=== PATIENT | female | born 1950 | race Caucasian/White ===

== ENCOUNTER → 2017-10-21 | Outpatient (CLI) | payer MEDICARE ==
--- NOTE | 2017-10-21 08:56 | RADIOLOGY IMAGING REPORT ---
FACILITY: [facility] - [place] PATIENT NAME: Gila Stephens : 1950 MR: [id number] V: [id number] EXAM DATE: ORDERING PHYSICIAN: MIRANDA WHITE TECHNOLOGIST: Location: [facility] [place] Patient: Gila Stephens : 1950 Visit/Account:[id number] Date of Sevice: 10/21/2017 BONE MINERAL DENSITY HISTORY: Osteopenia COMPARISON: None FINDINGS: LUMBAR SPINE: Bone mineral density (BMD) measured from L1-L4 correlates with a Z-score of 2.1 and a T-score of 1.6 which is normal as defined by the World Health Organization. The corresponding risk of fracture in t he lumbar spine is not increased compared with a young adult reference population. HIP: Bone mineral density (BMD) measured in the left hip or femoral neck region correlates with a Z-score of 1.1 and a T-score of 0.2 which is normal as defined by the World Health Organization. The corres ponding risk of fracture in the hip is not increased compared with a young adult reference population . Bone mineral density (BMD) measured in the left Femoral Neck region measures 1.064 g/cm2. IMPRESSION: 1. Lumbar spine: Normal. 2. Left Hip: Normal. 3. Left Femoral Neck: Bone Mineral Density is 1.064 g/cm2. FRAX? WHO Fracture Risk Assessment Tool link: <http://www.shef.ac.uk/FRAX/tool.jsp?[email or web address]> PLEASE NOTE: 1) The World Health Organization defines low BMD as follows: T-score Normal > -1 Osteopenia < -1 and > -2.5 Osteoporosis < -2.5 without fractures Established osteoporosis < -2.5 with fractures 2) In general, you may wish to consider: Diagnosis Treatment Follow-up DEXA Normal BMD Prevention 2-3 years Osteopenia Prevention/therapy 1-2 years Osteoporosis Therapy Yearly 3) Fracture risk estimated from the T-score is more accurate for vertebral fractures (often spontane ous) than for hip fractures. Report Dictated By: Reymundo De La Fuente at 10/21/2017 8:45 AM Report E-Signed By: Reymundo De La Fuente at 10/21/2017 8:50 AM WSN:[email or web address]
--- NOTE | 2017-10-21 08:59 | EKG ---
FACILITY: [facility] - [place], [place] PATIENT NAME: GIORGIO TREVINO : [id number] MR: [id number] V: [id number] EXAM DATE: ORDERING PHYSICIAN: MIRANDA WHITE TECHNOLOGIST: Santos Silverman Reason : Blood Pressure : / mmHG Vent. Rate : 081 BPM Atrial Rate : 081 BPM P-R Int : 194 ms QRS Dur : 100 ms QT Int : 412 ms P-R-T Axes : 048 075 042 degrees QTc Int : 478 ms Sinus rhythm Possible left atrial enlargement No previous ECGs available Confirmed by MELO CARD ([id number]) on 10/21/2017 7:33:02 PM Referred By: MIRANDA WHITE Confirmed By:MELO CARD
[2017-10-21 10:22] LABS: LDL CHOLESTEROL 75 mg/dl
--- NOTE | 2017-10-21 11:09 | RADIOLOGY IMAGING REPORT ---
FACILITY: [facility] - [place] PATIENT NAME: GIORGIO TREVINO : [id number] MR: [id number] V: [id number] EXAM DATE: ORDERING PHYSICIAN: MIRANDA WHITE TECHNOLOGIST: Connie Jerome PROCEDURE:BILATERAL DIGITAL SCREENING MAMMOGRAM WITH CAD ASSISTED INTERPRETATION & 3D TOMOSYNTHESIS COMPARISON:None. The patient's prior mammograms have been purged. INDICATIONS:screening FINDINGS: A small amount of fibroglandular tissue is seen throughout the breasts. There is a focal area of increased densities on Zone 2 in the upper outer quadrant of the Left breast for which spot compression view is recommended. DIAGNOSTIC CATEGORY 0--INCOMPLETE: NEED ADDITIONAL IMAGING EVALUATION. RECOMMENDATIONS: ADDITIONAL MAMMOGRAPHIC VIEWS REQUIRED: LEFT BREAST. IMPRESSION: BIRADS 0: Incomplete Additional view of the Left breast is recommended as described. Dictated by: Eleni Cardona M.D. on 10/21/2017 at 8:35 Transcribed by: ALLEN on 10/21/2017 at 10:55 Approved by: Eleni Cardona M.D. on 10/21/2017 at 11:08 [facility]
== END ==
LOC: MAMO 02:06
PROVIDERS: ATTEND Nurse Practitioner Family
DX: Z13.820 Encounter for screening for osteoporosis (principal); Z12.31 Encounter for screening mammogram for malignant neoplasm of breast; R92.8 Other abnormal and inconclusive findings on diagnostic imaging of breast; E28.39 Other primary ovarian failure; I10 Essential (primary) hypertension; R53.83 Other fatigue; R06.02 Shortness of breath; Z83.3 Family history of diabetes mellitus; E66.01 Morbid (severe) obesity due to excess calories; Z68.41 Body mass index [BMI] 40.0-44.9, adult
CPT/HCPCS: 36415; 77063; 77067; 77080; 82040; 82247; 82310; 82374; 82435; 82465; 82565; 82947; 83036; 83718; 83880; 84075; 84132; 84155; 84295; 84443; 84450; 84460; 84478; 84520; 93005

== ENCOUNTER → 2017-10-29 | Outpatient (CLI) | payer MEDICARE, OTHER ==
--- NOTE | 2017-10-29 15:52 | RADIOLOGY IMAGING REPORT ---
[facility] PATIENT NAME: GIORGIO TREVINO : [id number] MR: [id number] V: [id number] EXAM DATE: [id number] ORDERING PHYSICIAN: MIRANDA WHITE TECHNOLOGIST: Charline Hassan PROCEDURE:LEFT DIGITAL DIAGNOSTIC MAMMOGRAM WITH CAD ASSISTED INTERPRETATION & 3D TOMOSYNTHESIS COMPARISON:Prior mammograms 10/21/17. INDICATIONS:FURTHER EVAL FINDINGS: The patient returns for a mediolateral view of the Left breast and spot compression view in the Left CC and MLO projections. The small focal area of increased density in the upper outer quadrant of the Left breast appear compressible and apparently represent summation shadow. There is no evidence of malignant appearing mass, or calcifications in the Left breast. DIAGNOSTIC CATEGORY 2--BENIGN FINDING. RECOMMENDATIONS: ROUTINE MAMMOGRAM AND CLINICAL EVALUATION. IMPRESSION: BIRADS 2: Benign finding No significant abnormality of the Left breast is seen Dictated by: Eleni Cardona M.D. on 10/29/2017 at 11:46 Transcribed by: ALLEN on 10/29/2017 at 14:25 Approved by: Eleni Cardona M.D. on 10/29/2017 at 15:51 [facility]
== END ==
LOC: MAMO 06:53
PROVIDERS: ATTEND Nurse Practitioner Family
DX: R92.2 Inconclusive mammogram (principal)
CPT/HCPCS: 77065

== ENCOUNTER 2018-11-12 11:10 | Emergency (ER) | payer MEDICARE, OTHER ==
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
[2018-11-12] MEDS ORDERED: HYDR-2966 PO (11:37)
[2018-11-12] MEDS ORDERED: VENL150C61 PO (11:38)
[2018-11-12] MEDS ORDERED: NS(*) 0.9% 1000 ML BAG 1,000 ML IV ONE (11:40)
[2018-11-12 11:52] LABS: PLATELET COUNT, AUTOMATED 278 K/uL (150-450)
--- NOTE | 2018-11-12 12:00 | EKG ---
FACILITY: [facility] [place] PATIENT NAME: GIORGIO TREVINO : [id number] MR: [id number] V: [id number] EXAM DATE: ORDERING PHYSICIAN: KADEN TO TECHNOLOGIST: JON Silverman Reason : SHORT TERM MEMORY Blood Pressure : / mmHG Vent. Rate : 086 BPM Atrial Rate : 086 BPM P-R Int : 194 ms QRS Dur : 104 ms QT Int : 410 ms P-R-T Axes : 040 055 042 degrees QTc Int : 490 ms Sinus rhythm with occasional premature ventricular complexes and fusion complexes Prolonged QT Abnormal ECG Confirmed by SIENNA SORENSEN ([id number]) on 11/13/2018 6:46:36 AM Referred By: Confirmed By:SIENNA SORENSEN
--- NOTE | 2018-11-12 12:15 | RADIOLOGY IMAGING REPORT ---
FACILITY: [facility] [place] PATIENT NAME: Gila Stephens : 1950 MR: [id number] V: [id number] EXAM DATE: ORDERING PHYSICIAN: KADEN TO TECHNOLOGIST: Location[place] [facility] [place] Patient: Gila Stephens : 1950 Visit/Account:[id number] Date of Sevice: 11/12/2018 EXAMINATION: CT head without IV contrast HISTORY: Short-term memory loss. TECHNIQUE: Axial CT images of the head were obtained from the vertex to the skull base without IV c ontrast, with coronal and sagittal 2D reconstructed images. One of the following dose optimization techniques was utilized in the performance of this exam: Autom ated exposure control; adjustment of the mA and/or kV according to the patient's size; or use of an i terative reconstruction technique. Specific details can be referenced in the facility's radiology C T exam operational policy. COMPARISON: None. FINDINGS: There is mild age-appropriate parenchymal volume loss with slight patchy low attenuation in the deep white matter compatible with chronic small vessel ischemic change. No CT evidence of intracranial hemorrhage, mass lesion, or acute infarct. No midline shift or extra-a xial fluid collections. Pompa-white differentiation is maintained. The calvarium is intact. Moderate mucosal thickening in the right maxillary sinus. The paranasal sinu ses and mastoid air cells are otherwise unopacified. IMPRESSION: 1. No CT evidence of acute intracranial pathology. 2. Mild chronic age-related changes. 3. Inflammatory sinus disease in the right maxillary sinus. Report Dictated By: Reyes Lozano MD at 11/12/2018 12:06 PM Report E-Signed By: Reyes Lozano MD at 11/12/2018 12:10 PM WSN:[id number]
--- NOTE | 2018-11-12 12:31 | RADIOLOGY IMAGING REPORT ---
FACILITY: [facility] - [place] PATIENT NAME: Gila Stephens : 1950 MR: [id number] V: [id number] EXAM DATE: ORDERING PHYSICIAN: KADEN TO TECHNOLOGIST: Location: [facility] Patient: Gila Stephens : 1950 Visit/Account:[id number] Date of Sevice: 11/12/2018 CHEST PA LAT Additional pertinent History: Short-term memory loss COMPARISON STUDIES: None FINDINGS: Support lines and catheters: None Lungs and Pleura: Lung parnell well expanded with no infiltrates or consolidations. No parenchymal ma ss lesions are seen. There are no effusions Heart and vasculature: Negative. Kym and Mediastinum: Negative. Bones and Chest wall: Scoliotic curvature of the thoracic spine maximally convex to the left at the T8 level. Associated osteophytes and disc space narrowing central/lower thoracic spine Upper Abdomen: Negative. IMPRESSION: 1. Negative chest for acute cardiopulmonary disease. Report Dictated By: Aron Real MD at 11/12/2018 12:24 PM Report E-Signed By: Aron Real MD at 11/12/2018 12:26 PM WSN:[id number]
--- NOTE | 2018-11-12 14:13 | RADIOLOGY IMAGING REPORT ---
FACILITY: [facility] PATIENT NAME: Gila Stephens : 1950 MR: [id number] V: [id number] EXAM DATE: ORDERING PHYSICIAN: KADEN TO TECHNOLOGIST: Location: [facility] Patient: Gila Stephens : 1950 Visit/Account:[id number] Date of Sevice: 11/12/2018 EXAMINATION: MRI brain without IV contrast HISTORY: Sudden short-term memory loss. COMPARISON: CT head from 11/12/2018. TECHNIQUE: Multi-planar, multi-sequence brain MRI was performed without IV contrast. FINDINGS: Brain volume: Normal. Sagittal midline structures: Normal. Ventricles: Normal. Acute ischemic changes: No diffusion restriction present to suggest acute ischemia. Hemorrhage: No acute hemorrhage or hemosiderin staining. Masses/edema: 5 mm simple benign pineal cyst. No mass effect on adjacent structures. Pompa-white: Negative. White matter: A few T2/FLAIR hyperintensities in the deep white matter bilaterally. Vessels: Normal. Extra-axial: None. Calvarium/scalp: Negative. Skull base: Negative. Visualized sinuses/orbits: Mild patchy mucosal thickening in the paranasal sinuses, worst in the rig ht maxillary sinus. Mild nasal septal deviation to the right. Visualized upper neck: Negative. IMPRESSION: 1. No acute infarct or hemorrhage. 2. Mild nonspecific white matter disease is suspicious for chronic small vessel ischemia. 3. 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 No mass effect on adjacent str uctures. No imaging follow-up is needed unless clinically indicated. 4. Mild nonobstructive inflammation of the paranasal sinuses, worst in the right maxillary sinus. Report Dictated By: Christine Juarez MD at 11/12/2018 2:03 PM Report E-Signed By: Christine Juarez MD at 11/12/2018 2:07 PM WSN:[id number]
[2018-11-12 15:30] VITALS: BP 132/93
== END 2018-11-12 17:39 | disposition short-term general hospital (02) ==
LOC: ER 11:30
DX: G45.4 Transient global amnesia (principal); R79.89 Other specified abnormal findings of blood chemistry; I45.81 Long QT syndrome
CPT/HCPCS: 36415; 70450; 70551; 71046; 80305; 81001; 82375; 83735; 84443; 84484; 85025; 93005; 96360; 99285; J7030; 82040; 82247; 82310; 82374; 82435; 82565; 82947; 84075; 84132; 84155; 84295; 84450; 84460; 84520

== ENCOUNTER → 2018-11-12 | Outpatient (CLI) | payer MEDICARE, OTHER ==
[~2018-11-12] MED LIST: HYDR-2966 PO; VENL150C61 PO
== END ==
LOC: AMB 17:15
PROVIDERS: ATTEND Nurse Practitioner
DX: R79.89 Other specified abnormal findings of blood chemistry (principal); R41.0 Disorientation, unspecified
CPT/HCPCS: A0425; A0426

== ENCOUNTER → 2018-12-03 | Outpatient (CLI) | payer MEDICARE, OTHER | LOC: LAB 08:26 | PROVIDERS: ATTEND Nurse Practitioner Family | DX: I10 Essential (primary) hypertension (principal) | CPT/HCPCS: 36415; 82040; 82247; 82310; 82374; 82435; 82565; 82947; 84075; 84132; 84155; 84295; 84450; 84460; 84520 ==

== ENCOUNTER → 2019-01-14 | Outpatient (CLI) | payer MEDICARE, OTHER | LOC: US 06:55 | PROVIDERS: ATTEND Internal Medicine | DX: I51.81 Takotsubo syndrome (principal); I21.4 Non-ST elevation (NSTEMI) myocardial infarction | CPT/HCPCS: 93306 ==

== ENCOUNTER 2019-03-18 09:00 | Outpatient (RCR) | payer MEDICARE, OTHER ==
[2018-12-21 15:14] VITALS: BP 136/94
[2018-12-21 15:17] VITALS: BP 102/78
--- NOTE | 2018-12-21 16:45 | CARDIAC REHAB PLAN OF CARE ---
Physician: Marilee Mobley Patient is being seen: Cristhian Alfaro Medical Diagnosis: NSTEMI Date of Initial Evaluation: 12/21/2018 Short Term Goals Due Date: 01/20/19 Patient Assessment: Patient is a 68 year old female that comes to cardiac rehab after an ER visit for evaluation of LOC changes and possible stroke, which was negative, but the patients Troponin was found to be elevated (0.6) and patient was transferred by ambulance to [facility] in [place] and found to have a peak Troponin of 1.4. Patient found to have a stress induced cardiomyopathy. A nuclear stress test suggested nonischemic etiology of symptoms with an EF of 49% Exercise Assessment: During his 6 minute walk test she was able to cover 1380 feet, 2.6 MPH with room air SPO2 at 91-94%, and the cafeteria monitor showing a NSR-ST with an occasional PVC and rates of 87-101. Patient normally walks for exercise and has also used an upright and recumbent bike and she was interested in the NuStep, achieving 439 steps at 5.6 METs in 6 minutes. Exercise Plan: Goals: Are to to continue aerobic exercise with really all options available to the patient, but will probably want to mix walking, biking, and NuStep into her session. The 5'5", 220 lb female is at a 36.6 kg/m2 obese range. However she is able to tolerate a moderate level (3.0-6.0 MET level) of exercise in the 20-30 minute range initially. Exercise Prescription: 20-30 minutes as tolerated, at a moderate level of intensity, followed by weight resistance. Mode: Treadmill, upright or recumbent bike, NuStep, dumbbell weights. Frequency: 3 days/week (MWF) Duration: 20-30 minutes of aerobic exercise; 10-15 minutes of strength training and stretching. Intensity: Patients initial evaluation shows good motivation towards exercise and will be to tolerate at least a MET level 3.0 during her aerobic activity. Exercise Reassessment (Date: ): Exercise Discharge/Follow-Up (Date: ): Nutrition Assessment: The patient reports eating mostly healthy,but needs to make adjustments towards a heart healthy plan to include weight loss. Her max healthy BMI weight should be 150 pounds. Her information given during her eval shows her sugar and refined carbohydrate intake is too high and her vegetable and healthy protein amounts need to increase. Nutrition Plan: Goals: The goals with be to educate the patient with trading out refined carbohydrates with whole grain options, and to include good healty options for protein and fat. Intervention: One of the patients goals includes weight loss, and our education on dietary intake will be well received. Portion control was talked about and she will track her foods better so we can identify areas to eliminate unhealthy calories and to help control portions. Nutrition Reassessment (Date: ): Nutrition Discharge/Follow-Up (Date: ): Psychosocial Assessment: The patient is very pleasant and willing to learn and make a full effort in this phase II program. Her initial visit to the ER was cause by a stressful, emotional meeting at [facility] that cause stress induced cardiomyopathy, and Global Amnesia. She has reported that stressful moments give her a squeezing, tight feeling in her chest. Her HADS test for depression and anxiety shows normal levels of each. She is medicated for chronic depression. Psychosocial Plan: Goals: Our goals are to continue to educate and motivate her during visits for cardiac rehab. With our support and her effort she will have a positive outcome from cardiac rehab and will help her overall stress level to be lower as she gains confidence in her health. Intervention: Intervention will be to continue to educate her mostly with dietary changes and encourage that weight loss with healthy foods and consistency of exercise. Psychosocial Reassessment (Date: ): Psychosocial Discharge/Follow-Up (Date: ): Physician Signature: Date: MTDD
[2018-12-22 12:50] VITALS: BP 120/88
[2018-12-22 12:51] VITALS: BP 108/68
[2018-12-24 17:26] VITALS: BP 124/84
[2018-12-24 17:27] VITALS: BP 96/78
[2018-12-27 18:23] VITALS: BP 122/78
[2018-12-27 18:25] VITALS: BP 94/72
[2018-12-29 17:51] VITALS: BP 100/62
[2018-12-29 17:53] VITALS: BP 104/70
[2018-12-31 13:12] VITALS: BP_SYST 132; BP_SYST 148; BP_DIAS 72; BP_DIAS 78
[2019-01-03 13:06] VITALS: BP 128/76
[2019-01-03 13:07] VITALS: BP 112/66
[2019-01-07 17:17] VITALS: BP 98/72
[2019-01-07 17:19] VITALS: BP 108/72
[2019-01-10 17:23] VITALS: BP 124/80
[2019-01-10 17:26] VITALS: BP 132/78
[2019-01-12 17:00] VITALS: BP_SYST 112; BP_SYST 90; BP_DIAS 64; BP_DIAS 68
[2019-01-14 13:12] VITALS: BP_SYST 124; BP_DIAS 6; BP_DIAS 68
[2019-01-14 13:14] VITALS: BP 112/76
[2019-01-21 17:11] VITALS: BP 124/82
[2019-01-21 17:13] VITALS: BP 100/70
--- NOTE | 2019-01-23 11:43 | CARDIAC REHAB PLAN OF CARE ---
Physician: Robert NUNN Patient is being seen: Cristhian Alfaro Medical Diagnosis: NSTEMI Date of Initial Evaluation: 12/21/2018 Short Term Goals Due Date: 02/22/19 Short Term Goals: Patient Assessment: Patient is a 68 year old female that comes to cardiac rehab after an ER visit for evaluation of LOC changes and possible stroke, which was negative, but the patients Troponin was found to be elevated (0.6) and patient was transferred by ambulance to [facility] in [place] and found to have a peak Troponin of 1.4. Patient found to have a stress induced cardiomyopathy. A nuclear stress test suggested nonischemic etiology of symptoms with an EF of 49% Exercise Assessment: During his 6 minute walk test she was able to cover 1380 feet, 2.6 MPH with room air SPO2 at 91-94%, and the security monitor showing a NSR-ST with an occasional PVC and rates of 87-101. Patient normally walks for exercise and has also used an upright and recumbent bike and she was interested in the NuStep, achieving 439 steps at 5.6 METs in 6 minutes. Exercise Plan: Goals: Are to to continue aerobic exercise with really all options available to the patient, but will probably want to mix walking, biking, and NuStep into her session. The 5'5", 220 lb female is at a 36.6 kg/m2 obese range. However she is able to tolerate a moderate level (3.0-6.0 MET level) of exercise in the 20-30 minute range initially. Exercise Prescription: 20-30 minutes as tolerated, at a moderate level of intensity, followed by weight resistance. Mode: Treadmill, upright or recumbent bike, NuStep, dumbbell weights. Frequency: 3 days/week (MWF) Duration: 20-30 minutes of aerobic exercise; 10-15 minutes of strength training and stretching. Intensity: Patients initial evaluation shows good motivation towards exercise and will be to tolerate at least a MET level 3.0 during her aerobic activity. Exercise Reassessment (Date: 01/23/2019): Patient has made 12 visits to cardiac rehab since her evaluation and has improved her duration and intensity of exercise. Her improvement in exercise volume is evident by her achieving over 5 METS on both the NuStep and Treadmill. Exercise Discharge/Follow-Up (Date: ): Nutrition Assessment: The patient reports eating mostly healthy,but needs to make adjustments towards a heart healthy plan to include weight loss. Her max healthy BMI weight should be 150 pounds. Her information given during her eval shows her sugar and refined carbohydrate intake is too high and her vegetable and healthy protein amounts need to increase. Nutrition Plan: Goals: The goals with be to educate the patient with trading out refined carbohydrates with whole grain options, and to include good healthy options for protein and fat. Intervention: One of the patients goals includes weight loss, and our education on dietary intake will be well received. Portion control was talked about and she will track her foods better so we can identify areas to eliminate unhealthy calories and to help control portions. Nutrition Reassessment (Date: 01/23/2019): The patient has made adjusments to her diet at home, but during travel has found eating out to be difficult to eat healthy. CR staff continuing education during visits for cardiac rehab will focus on making good choices while dining out to help her with that part of her life. Nutrition Discharge/Follow-Up (Date: ): Psychosocial Assessment: The patient is very pleasant and willing to learn and make a full effort in this phase II program. Her initial visit to the ER was cause by a stressful, emotional meeting at [employer] that cause stress induced cardiomyopathy, and Global Amnesia. She has reported that stressful moments give her a squeezing, tight feeling in her chest. Her HADS test for depression and anxiety shows normal levels of each. She is medicated for chronic depression. Psychosocial Plan: Goals: Our goals are to continue to educate and motivate her during visits for cardiac rehab. With our support and her effort she will have a positive outcome from cardiac rehab and will help her overall stress level to be lower as she gains confidence in her health. Intervention: Intervention will be to continue to educate her mostly with dietary changes and encourage that weight loss with healthy foods and consistency of exercise. Psychosocial Reassessment (Date: 01/23/2019): Katiana is very positive and pleasant while attending cardiac rehab. She has met and exceeded initial goals of exercise during her first 12 visits. She also had a recent visit to her brick setter operator and he reports that her EF has increased to 70%, from 49%. The combination of exercise results and great news from her Physician has her motivation level very high to continue working hard in this program with good health being the reward for that. Psychosocial Discharge/Follow-Up (Date: ): Physician Signature: Date: MTDD
[2019-01-24 13:32] VITALS: BP 132/80
[2019-01-24 13:34] VITALS: BP 92/64
[2019-01-28 12:53] VITALS: BP_SYST 110; BP_SYST 124; BP_DIAS 78; BP_DIAS 84
[2019-01-31 13:00] VITALS: BP_SYST 106; BP_SYST 128; BP_DIAS 64; BP_DIAS 70
[2019-02-02 13:12] VITALS: BP 118/78
[2019-02-02 13:13] VITALS: BP 104/66
[2019-02-04 15:47] VITALS: BP 136/80
[2019-02-04 15:48] VITALS: BP 102/68
[2019-02-07 12:54] VITALS: BP 124/82
[2019-02-07 12:57] VITALS: BP 128/80
[2019-02-09 13:04] VITALS: BP 120/80
[2019-02-09 13:05] VITALS: BP 84/60
[2019-02-14 12:46] VITALS: BP 132/84
[2019-02-14 12:47] VITALS: BP 118/80
[2019-02-16 12:48] VITALS: BP 102/80
[2019-02-16 12:49] VITALS: BP 100/64
[2019-02-18 13:11] VITALS: BP 120/74
[2019-02-18 13:14] VITALS: BP 90/60
[2019-02-21 13:09] VITALS: BP 126/88
[2019-02-21 13:10] VITALS: BP 100/64
--- NOTE | 2019-02-21 17:53 | CARDIAC REHAB PLAN OF CARE ---
Physician: Robert NUNN Patient is being seen: Cristhian Alfaro Medical Diagnosis: NSTEMI Date of Initial Evaluation: 12/21/2018 Short Term Goals Due Date: 02/21/19 Short Term Goals: Patient Assessment: Patient is a 68 year old female that comes to cardiac rehab after an ER visit for evaluation of LOC changes and possible stroke, which was negative, but the patients Troponin was found to be elevated (0.6) and patient was transferred by ambulance to [facility] in [place] and found to have a peak Troponin of 1.4. Patient found to have a stress induced cardiomyopathy. A nuclear stress test suggested nonischemic etiology of symptoms with an EF of 49% Exercise Assessment: During his 6 minute walk test she was able to cover 1380 feet, 2.6 MPH with room air SPO2 at 91-94%, and the ekg monitor tech showing a NSR-ST with an occasional PVC and rates of 87-101. Patient normally walks for exercise and has also used an upright and recumbent bike and she was interested in the NuStep, achieving 439 steps at 5.6 METs in 6 minutes. Exercise Plan: Goals: Are to to continue aerobic exercise with really all options available to the patient, but will probably want to mix walking, biking, and NuStep into her session. The 5'5", 220 lb female is at a 36.6 kg/m2 obese range. However she is able to tolerate a moderate level (3.0-6.0 MET level) of exercise in the 20-30 minute range initially. Exercise Prescription: 20-30 minutes as tolerated, at a moderate level of intensity, followed by weight resistance. Mode: Treadmill, upright or recumbent bike, NuStep, dumbbell weights. Frequency: 3 days/week (MWF) Duration: 20-30 minutes of aerobic exercise; 10-15 minutes of strength training and stretching. Intensity: Patients initial evauation shows good motivation towards exercise and will be to tolerate at least a MET level 3.0 during her aerobic activity. Exercise Reassessment (Date: 01/23/2019): Patient has made 12 visits to cardiac rehab since her evaluation and has improved her duration and intensity of exercise. Her improvement in exercise volume is evident by her achieving over 5 METS on both the NuStep and Treadmill. Exercise Discharge/Follow-Up (Date: 02/21/2019): The patient has made 23 visits to cardiac rehab and continues to achieve a good level of exercise volume. The patient is consistantly getting 45 minutes of a moderate range of cardio exercise (usually 4.5-5.5 METs), followed by weight resistance with 5 pound dumbbells. Nutrition Assessment: The patient reports eating mostly healthy,but needs to make adjustments towards a heart healthy plan to include weight loss. Her max healthy BMI weight should be 150 pounds. Her information given during her eval shows her sugar and refined carbohydrate intake is too high and her vegetable and healthy protein amounts need to increase. Nutrition Plan: Goals: The goals with be to educate the patient with trading out refined carbohydrates with whole grain options, and to include good healty options for protein and fat. Intervention: One of the patients goals includes weight loss, and our education on dietary intake will be well received. Portion control was talked about and she will track her foods better so we can identify areas to eliminate unhealthy calories and to help control portions. Nutrition Reassessment (Date: 01/23/2019): The patient has made adjusments to her diet at home, but during travel has found eating out to be difficult to eat healthy. CR staff continuing education during visits for cardiac rehab will focus on making good choices while dining out to help her with that part of her life. Nutrition Discharge/Follow-Up (Date:02/21/2019): Patient has reported very little if any weight loss, and a closer look with a rate my plate evaluation may be a better way to help the patient identify the amount of refined carbohydrates and sugar during the entire day. Psychosocial Assessment: The patient is very pleasant and willing to learn and make a full effort in this phase II program. Her initial visit to the ER was cause by a stressful, emotional meeting at [employer] that cause stress induced cardiomyopathy, and Global Amnesia. She has reported that stressful moments give her a squeezing, tight feeling in her chest. Her HADS test for depression and anxiety shows normal levels of each. She is medicated for chronic depression. Psychosocial Plan: Goals: Our goals are to continue to educate and motivate her during visits for cardiac rehab. With our support and her effort she will have a positive outcome from cardiac rehab and will help her overall stress level to be lower as she gains confidence in her health. Intervention: Intervention will be to continue to educate her mostly with dietary changes and encourage that weight loss with healthy foods and consistency of exercise. Psychosocial Reassessment (Date: 01/23/2019): Katiana is very positive and pleasant while attending cardiac rehab. She has met and exceeded initial goals of exercise during her first 12 visits. She also had recent visit to her sheetmetal worker and he reports that her EF has increased to 70%. The combination of exercise results and great news from her Physician has her motivation level very high to continue working hard in this program with good health being the reward for that. Psychosocial Discharge/Follow-Up (Date:02/21/2019): The patient remains very motivated by the cardiac rehab program from achieving initial exercise goals and continuing to improve intensity. She also was encouraged by a recent positive visit to her Radiotelegraphist. She has also found the attendance to her cardiac rehab class a very positive social experience which also keeps her motivated to attend class. Physician Signature: Date: MTDD
[2019-02-23 13:01] VITALS: BP_SYST 102; BP_SYST 128; BP_DIAS 70; BP_DIAS 80
[2019-03-02 13:17] VITALS: BP_SYST 102; BP_SYST 118; BP_DIAS 60; BP_DIAS 82
[2019-03-04 13:46] VITALS: BP_SYST 100; BP_SYST 110; BP_DIAS 64; BP_DIAS 78
[2019-03-07 16:47] VITALS: BP 124/76
[2019-03-07 16:52] VITALS: BP 100/70
[2019-03-09 16:55] VITALS: BP_SYST 110; BP_SYST 86; BP_DIAS 68; BP_DIAS 80
[2019-03-11 13:27] VITALS: BP_SYST 116; BP_SYST 98; BP_DIAS 66; BP_DIAS 74
[2019-03-16 13:07] VITALS: BP 112/64
[2019-03-16 13:08] VITALS: BP 110/68
[2019-03-18 16:24] VITALS: BP_SYST 108; BP_SYST 128; BP_DIAS 74
== END 2019-03-21 ==
LOC: CARD 09:00
PROVIDERS: ATTEND Internal Medicine
DX: I51.81 Takotsubo syndrome (principal); I25.2 Old myocardial infarction
CPT/HCPCS: 93798